=== PATIENT | male | born 2000 | race Caucasian/White ===

== ENCOUNTER 2023-08-17 21:23 | Outpatient (CLI) | payer OTHER, SELFPAY | END 2023-08-17 21:24 | disposition home or self-care (01) | LOC: AMB 08-25 11:02 | PROVIDERS: Visit Provider Emergency Medicine | DX: S69.92XA Unspecified injury of left wrist, hand and finger(s), initial encounter (principal); W01.0XXA Fall on same level from slipping, tripping and stumbling without subsequent striking against object, initial encounter; Y93.66 Activity, soccer; Y92.322 Soccer field as the place of occurrence of the external cause | CPT/HCPCS: A0425; A0427 ==

== ENCOUNTER 2023-08-17 21:57 | Emergency (ER) | payer OTHER, SELFPAY ==
--- NOTE | 2023-08-17 | CRLHL7_ITS ---
For Patients: As a result of the Cures Act, medical imaging exams and procedure reports are released immediately into your electronic medical record. You may view this report before your referring provider. If you have questions, please contact your health care provider. INDICATION: Wrist fracture status post reduction TECHNIQUE: Wrist radiograph 2 views left COMPARISON: 08/17/2023 FINDINGS: Bone: Comminuted intra-articular fracture of the distal radius is present with radial displacement of the distal fragment by 6 mm and dorsal displacement by 5 mm. Dorsal angulation of the distal articular surface is noted by 90 degrees. There is a minimally displaced fracture at the base of the ulnar styloid noted without change. Joint: The radiocarpal, carpal, and carpometacarpal joints are unremarkable in appearance. Soft tissue: An overlying cast is noted which limits evaluation of the underlying osseous structures and soft tissues. No radiopaque foreign bodies are seen. IMPRESSIONS: 1. Comminuted intra-articular fracture of the distal radius is present with radial displacement of the distal fragment by 6 mm and dorsal displacement by 5 mm. Dorsal angulation of the distal articular surface is noted by 90 degrees. The overall appearance is not significantly changed from prior exam. 2. There is a minimally displaced fracture at the base of the ulnar styloid noted without change. Dictated by Chico Waldron MD @ 08/18/2023 12:02:01 AM Dictated by: Chico Waldron MD @ 08/18/2023 00:02:07 (Electronically Signed)
--- NOTE | 2023-08-17 22:00 | CRLHL7_ITS ---
For Patients: As a result of the Cures Act, medical imaging exams and procedure reports are released immediately into your electronic medical record. You may view this report before your referring provider. If you have questions, please contact your health care provider. INDICATION: Fall. TECHNIQUE: Left wrist 3 views. Permanently recorded images are archived. COMPARISON: None. FINDINGS/IMPRESSION : Acute, mildly displaced ulnar styloid fracture. Acute, comminuted, displaced distal radial metaphysis fracture with possible intra-articular extension. There is 1/2 shaft-width lateral and 1 shaft-width dorsal displacement of the dominant distal fracture fragment. Soft tissue swelling about the wrist. Dictated by Jose Krueger MD @ 08/17/2023 10:44:52 PM (Electronically Signed)
[2023-08-17 22:01] VITALS: BP 103/74; PULSE 58; RESP 12; TEMP 36.4; O2SAT 99
[2023-08-17 22:35] VITALS: BP 108/77; PULSE 63; O2SAT 100
[2023-08-17 22:36] VITALS: PULSE 59; O2SAT 100
[2023-08-17] MEDS: MORPHINE 4 MG/ML INJ IVP (23:10)
--- NOTE | 2023-08-17 23:33 | CRLHL7_ITS ---
For Patients: As a result of the Century Cures Act, medical imaging exams and procedure reports are released immediately into your electronic medical record. You may view this report before your referring provider. If you have questions, please contact your health care provider. Indication: Reduction. Technique: Left wrist 2 views. Comparison: Left wrist radiographs from the same day. Findings/Impression: Interval reduction of the ulnar styloid fracture into near anatomic alignment. Significant improved, now near anatomic, alignment of the distal radial fracture status post reduction. Persistent soft tissue swelling about the wrist. The remainder the exam is unchanged. Dictated by Jose Krueger MD @ 08/17/2023 11:49:44 PM (Electronically Signed)
--- NOTE | 2023-08-18 00:14 | ED_ITS ---
HPI - General Adult General Date Seen: 08/18/23 Chief complaint: Extremity Pain/Injury, Upper Stated complaint: Injury Time Seen by Provider: 08/17/23 22:18 Source: patient and EMS Mode of arrival: EMS Limitations: no limitations History of Present Illness HPI narrative: Patient is a 23-year-old [employer] student who was playing soccer, stepped on the ball and fell catching himself with his left hand. He injured his left wrist, had 50 mcg of fentanyl per paramedics, pain was reasonably controlled with that. No complaints of numbness or loss of function, no other injuries. General health is good. No allergies. Related Data Home Medications Medication Instructions Recorded Confirmed benzoyl peroxide topical 08/17/23 Allergies Allergy/AdvReac Type Severity Reaction Status Date / Time No Known Drug Allergies Allergy Verified 08/17/23 22:06 Review of Systems Status of ROS: Reports: 6 or more systems reviewed and unremarkable except as noted in History and below PFSH PFS Social History Smoking Status: Never smoker Do you use any of these nicotine containing products: None Non-prescribed substance use: denies use Exam Narrative: Exam Narrative: Vital signs reviewed, mildly bradycardic normal for age In general, alert, well-appearing young man. Head: Normocephalic, atraumatic Extremities: Examination of the left wrist shows deformity and swelling. Radial pulses 2+, distal CMS is normal. Skin: Warm and dry. Intact over the fracture site. Const: Vital Signs, click to edit/add: Vital Signs - 24 hr 08/17/23 22:01 08/17/23 22:35 08/17/23 22:36 Temperature 97.6 F Pulse Rate 63 59 L Pulse Rate [Right Pulse Oximeter] 58 L Respiratory Rate 12 Blood Pressure 108/77 Blood Pressure [Le ft Upper Arm] 103/74 Pulse Oximetry 99 100 100 Oxygen Delivery Me thod Room Air Documenting provider has reviewed patient's vital signs: yes Course Course ED Course: X-rays of the left wrist confirm a comminuted, displaced possibly intra- articular fracture of the distal radius. There is also a fracture of the ulnar styloid. Final radiology read as follows:FINDINGS/IMPRESSION : Acute, mildly displaced ulnar styloid fracture. Acute, comminuted, displaced distal radial metaphysis fracture with possible intra-articular extension. There is 1/2 shaft-width lateral and 1 shaft-width dorsal displacement of the dominant distal fracture fragment. Soft tissue swelling about the wrist. I discussed options with him. At the time he was being seen, I was the sole physician here. Discussed with him that if we waited until the night doctor came on we could do sedation, or we could do hematoma block without needing to wait for a 2nd physician. He opted to try the hematoma block. Procedure note: I injected 6 mL of lidocaine with epinephrine in to the fracture site of the left wrist. He had good pain control with that. He was placed in finger traps and with traction and a little bit of pressure to the distal radial fragment, appeared significantly reduced. An x-ray was done at that time that showed good reduction of the fracture. He was placed in a sugar- tong splint using Ortho Glass and 3 Guevara wraps. He tolerated this well, CMS remains intact. He was removed from traction in finger traps after the splint was placed and a repeat x-ray was done. He does appear to have lost some of his positioning out of traction. It is however adequate for the time being. Recommend ibuprofen and/or Tylenol, orthopedic follow-up in the next week for recheck and discussion of best treatment plan. Splint and sling until that time Vital Signs Vital signs: Initial Vital Signs Temperature 97.6 F 08/17/23 22:01 Temperature Source Temporal Artery Scan 08/17/23 22:01 Pulse Rate 58 L 08/17/23 22:01 Pulse Rhythm Regular 08/17/23 22:01 Respiratory Rate 12 08/17/23 22:01 Blood Pressure 103/74 08/17/23 22:01 Blood Pressure Mean 83 08/17/23 22:01 Blood Pressure Position Sitting 08/17/23 22:01 Pulse Oximetry 99 08/17/23 22:01 Oxygen Delivery Method Room Air 08/17/23 22:01 Vital Signs Temperature 97.6 F 08/17/23 22:01 Pulse Rate 58 L 08/17/23 22:01 Respiratory Rate 12 08/17/23 22:01 Blood Pressure 103/74 08/17/23 22:01 Pulse Oximetry 99 08/17/23 22:01 Oxygen Delivery Method Room Air 08/17/23 22:01 Temperature 97.6 F 08/17/23 22:01 Pulse Rate 59 L 08/17/23 22:36 Respiratory Rate 12 08/17/23 22:01 Blood Pressure 108/77 08/17/23 22:35 Pulse Oximetry 100 08/17/23 22:36 Oxygen Delivery Method Room Air 08/17/23 22:01 Medications Administered Medications: Discontinued Medications Generic Name Dose Route Start Last Admin Trade Name Lucia PRN Reason Stop Dose Admin Morphine Sulfate 4 mg 08/17/23 23:04 08/17/23 23:10 Morphine 4 Mg/Ml Inj IVP 08/17/23 23:05 4 mg ONCE ONE Administration Discharge Plan Discharge Clinical Impression: Fracture of wrist Patient Disposition: Home, Self-Care Condition: Improved Instructions: Wrist Fracture in Adults (ED) Additional Instructions: Ibuprofen and/or Tylenol. Splint until orthopedic follow-up. You should be seen in Ortho Clinic later this week for recheck and determination of final treatment. [phone] to schedule. Prescriptions: No Action benzoyl peroxide [Acne Medication] topical Follow Up/Referrals: Provider,Not a Local [Primary Care Provider] - Stand Alone Forms: [employer] Info Instructions
== END 2023-08-18 00:24 | disposition home or self-care (01) ==
PROVIDERS: Emergency Provider Emergency Medicine
DX: S52.502A Unspecified fracture of the lower end of left radius, initial encounter for closed fracture (principal); S52.612A Displaced fracture of left ulna styloid process, initial encounter for closed fracture; W18.30XA Fall on same level, unspecified, initial encounter; Y93.66 Activity, soccer
CPT/HCPCS: 29125; 73100; 73110; 96374; 99284; 99285; J2270

== ENCOUNTER 2023-08-20 14:32 | Outpatient (CLI) | payer OTHER, SELFPAY | END 2023-08-20 14:33 | disposition home or self-care (01) | LOC: LKVREF 14:33 | PROVIDERS: Visit Provider Emergency Medicine | DX: Z01.818 Encounter for other preprocedural examination (principal) | CPT/HCPCS: 80048 ==

== ENCOUNTER 2023-08-21 08:46 | Day surgery (SDC) | payer OTHER, SELFPAY ==
[2023-08-21] VITALS (8 sets, daily range): BP systolic 100–117; BP diastolic 58–73; PULSE 51–68; RESP 16; TEMP 36.1–36.7; O2SAT 93–199; BMI 19.1
[2023-08-21] MEDS: LACTATED RINGERS 1000 ML 1,000 ML 100 ML IV ×2 (09:40→16:29)
--- NOTE | 2023-08-21 10:16 | W.PM.H&PU ---
History & Physical Update History & Physical Update H&P Reviewed and patient assessed: No changes noted
--- NOTE | 2023-08-21 11:00 | CRLHL7_ITS ---
For Patients: As a result of the Cures Act, medical imaging exams and procedure reports are released immediately into your electronic medical record. You may view this report before your referring provider. If you have questions, please contact your health care provider. Indication: Left wrist ORIF Technique: Two fluoroscopic images left wrist. Fluoroscopic time 50.6 seconds. IMPRESSION: Fluoroscopic guidance for ORIF distal radial fracture. Dictated by Ortiz Strauss MD @ 08/21/2023 2:57:25 PM (Electronically Signed)
[2023-08-21] MEDS: MIDAZOLAM HCL 1 MG/ML inj IVP (12:35)
[2023-08-21] MEDS: fentaNYL 100 MCG/2 ML inj IVP (12:35)
--- NOTE | 2023-08-21 12:35 | PM.ORPRC ---
Procedure Note Date of procedure: 08/21/23 Procedure: PREOPERATIVE DIAGNOSES: 1. Left distal radius fracture, displaced, unstable POSTOPERATIVE DIAGNOSES: 1. Left distal radius fracture, displaced, unstable NAME OF OPERATION: 1. Left distal radius open reduction with internal fixation of extra-articular 2 parts SURGEON: Charles Corrigan MD SLIP INJECTOR AND APPLICATOR: Michaela Diggs P.A.-C. An optometric assistant was critical for this case to aide in patient positioning, limb manipulation, tissue retraction, closure, and splinting. ANESTHESIA: Monitored anesthesia care with regional axillary block IMPLANTS: [employer] DVR Crosslock distal radius locking plate with 2.7mm distal locking pegs and screws; 2.7mm proximal nonlocking and locking screws TOURNIQUET: 67 minutes at 250 mmHg ESTIMATED BLOOD LOSS: 5 mL INDICATIONS: The patient is a pleasant, 23-year-old male who sustained a left wrist injury after a ground level fall. Following the injury, he was seen in the emergency department where he was diagnosed with a displaced left distal radius fracture. Closed reduction was performed which improved alignment, but alignment was not adequate for definitive care. Surgery was subsequently recommended to improve alignment and stablize the fracture. Prior to surgery the risks and benefits of the procedure were discussed with patient all questions were answered and informed consent was obtained. FINDINGS: Closed, displaced distal radius fracture. PROCEDURE: Following a thorough discussion of risks, benefits, and alternatives, consent was obtained and the operative extremity was marked. A supraclavicular nerve block was performed by anesthesia staff. The patient was then brought to the operating room and placed supine on the operating table. Induction of anesthesia was achieved and patient was provided with IV Ancef preoperatively for prophylaxis. The operative extremity was prepped and draped in usual sterile fashion . A surgical time-out was performed confirming patient identity surgical site and surgical procedure. The operative extremity was exsanguinated and the tourniquet inflated to 250 mmHg. A longitudinal incision was made overlying the FCR tendon. Sharp incision through skin and subcutaneous tissue allowed identification of the FCR tendon. The superficial sheath was sharply divided, the tendon retracted ulnarly, and the deep fascial sheath also released. The FPL was retracted ulnarly and the pronator quadratus was sharply released from the radial border of the radius and subperiosteally elevated. The fracture was encountered and cleared of interposed periosteum / fracture hematoma. A reduction was performed, but fracture was unstable could not be maintained. Therefore a K-wire was placed percutaneously through the radius styloid in a retrograde fashion across the fracture site to hold the reduction. An appropriate size plate was selected selected and temporarily with K-wires. Fluoroscopic imaging was used to confirm fracture reduction and appropriate plate positioning. The plate was then fixed distally with combination of smooth and threaded locking pegs. Fluoroscopic images were obtained to insure that all pegs were in the subchondral bone with no penetration of the articular surface. Once the plate was fixed distally, it was secured proximally with a nonlocking screw through the oblong hole. Finally, the remaining proximal shaft screws were drilled and placed. Fluoroscopic imaging confirmed appropriate position of the plate and screws with near anatomic reduction of the fracture. At this stage, the wound was thoroughly irrigated with normal saline. The pronator quadratus was repaired over the plate using [id number] interrupted 3-0 Vicryl sutures. The tourniquet was deflated and hemostasis was achieved electrocautery. Wound was then irrigated again with normal saline. A skin closure was then completed with 2-0 Vicryl for the subcutaneous, and 4-0 statafix for subcuticular closure, followed by Exofin glue. Sterile dressings were applied along with a short-arm volar splint. The patient was awoken from anesthesia and transferred to PACU in stable condition. PLAN: 1. Elevate operative extremity. 2. No weight-bearing on the operative extremity. Sling as needed for comfort. 3. Ice, acetominphen or ibuprofen PRN. 4. Oxycodone for severe as needed for more severe pain 5. Follow up in Orthopedic Clinic in 10-14 days for wound check and splint removal.
--- NOTE | 2023-08-21 12:43 | SUR.PREOP ---
TIME?OUT:?1230 PT/RN/MDA?VERIFICATION?OF?SURGICAL?SITE,?PROCEDURE,?AND?CONSENT OBTAINED?PRIOR?TO?INVASIVE?PROCEDURE.
--- NOTE | 2023-08-21 12:52 | P.NB_ITS ---
Nerve Block Nerve Block Time Seen by Provider: : Date Seen: 08/21/23 Type of block requested by surgeon for post-operative analgesia: axillary Side: left Time out performed: Yes Verification of patient name: Yes Verification of date of : Yes Site marking: site marked Name of person performing procedure: Parviz Continuous monitoring Was continuous monitoring of O2 sat, B/P, environmental monitoring technician, recorded every 15 minutes?: Yes Procedure Checklist: sterile prep, needles and gloves Ultrasound guided. Images saved: Yes Medications given in 5ml increments after negative aspiration: Ropivicaine %: 0.5 mL: 30 Needle gauge: 22 Decadron (mg): 10 Patient tolerated procedure well: Yes Additional comments: Needle noted adjacent to nerve Block Charges Block Charge (with Pro Fee): Brachial Plexus Use of Ultrasound Machine for Block: Yes- US Guidance/pain block
--- NOTE | 2023-08-21 12:53 | W.ANESCHARGE ---
Anesthesia Charges Start Date/Time Anesthesia Start Date: 08/21/23 Anesthesia Start Time: 12:58 Stop Date/Time Anesthesia Stop Date: 08/21/23 Anesthesia Stop Time: 15:08
[2023-08-21] MEDS: CEFAZOLIN 2 GM INJ IVP (13:18)
--- NOTE | 2023-08-21 15:09 | W.ANESCHARGE ---
Anesthesia Charges Start Date/Time Anesthesia Start Date: 08/21/23 Anesthesia Start Time: 12:58 Stop Date/Time Anesthesia Stop Date: 08/21/23 Anesthesia Stop Time: 15:08
== END 2023-08-21 16:37 | disposition home or self-care (01) ==
PROVIDERS: Visit Provider Orthopaedic Surgery
PROC: (CPT 25575; principal; 2023-08-21 11:00)
DX: S52.551A Other extraarticular fracture of lower end of right radius, initial encounter for closed fracture (principal); G89.18 Other acute postprocedural pain
CPT/HCPCS: 25607; 01830; 64415; 73110; 76000; 76942; A4580; C1713; J0690; J1100; J2250; J2704; J2795; J3010; J7120

== ENCOUNTER 2023-09-18 12:00 | Outpatient (RCR) | payer OTHER, SELFPAY | END 2023-09-18 12:50 | disposition home or self-care (01) | PROVIDERS: Visit Provider Physician Assistant Surgical | DX: Z98.890 Other specified postprocedural states (principal); Z51.89 Encounter for other specified aftercare | CPT/HCPCS: 97110; 97140; 97165; X5282 ==